=== PATIENT | male | born 1985 | race African-American/Black ===

== ENCOUNTER 2018-12-23 04:29 | Emergency (ER) | payer MEDICAID ==
[~2018-12-23] VITALS: Ht 180.3 cm; Wt 91.0 kg
[2018-12-23] MEDS ORDERED: IBUPROFEN 600MG TABLET PO ONE (09:00)
[2018-12-23 09:18] LABS: CLARITY URINE CLEAR (CLEAR); COLOR URINE YELLOW (YELLOW); KETONES URINE NEGATIVE (NEGATIVE); LEUKOCYTE ESTERASE URINE NEGATIVE (NEGATIVE); NITRITE URINE NEGATIVE (NEGATIVE); OCCULT BLOOD URINE NEGATIVE (NEGATIVE); PROTEIN URINE TRACE (NEGATIVE); UROBILINOGEN URINE 0.2 E.U./dL (0.2-1.0)
[2018-12-23 09:41] LABS: HEMATOCRIT. 44.6 % (42.0-52.0); HEMOGLOBIN. 15.1 g/dL (14.0-18.0); MEAN CORPUSCULAR HEMOGLOBIN 32.5 pg (28.0-32.0); MEAN CORPUSCULAR VOLUME 95.7 fL (80.0-94.0); MEAN PLATELET VOLUME 6.8 fl (7.4-10.4); PLATELET 369 x1000/uL (130-400); RED BLOOD CELL COUNT 4.66 mill/uL (4.7-6.1); RED CELL DISTRIBUTION WIDTH 14.3 % (11.6-14.6)
[2018-12-23 09:47] LABS: CHLORIDE 110 mEq/L (98-107)
[2018-12-23 09:51] LABS: ETHANOL BLOOD 165 mg/dL
[2018-12-23 10:13] LABS: *AMPHETAMINES SCREEN URINE NEGATIVE (NEGATIVE); *BENZODIAZEPINES SCREEN URINE NEGATIVE (NEGATIVE); *COCAINE SCREEN URINE PRESUMTIVE POSITIVE (NEGATIVE)
[2018-12-23 10:14] LABS: CANNABINOID URINE SCREEN NEGATIVE (NEGATIVE); METHADONE URINE SCREEN NEGATIVE (NEGATIVE); OPIATES URINE SCREEN NEGATIVE (NEGATIVE); PHENCYCLIDINE URINE SCREEN NEGATIVE (NEGATIVE)
[2018-12-23 10:15] LABS: *BARBITURATES SCREEN URINE NEGATIVE (NEGATIVE)
[2018-12-23 11:14] LABS: PLATELET ESTIMATE NORMAL
[2018-12-23] MEDS ORDERED: AMLODIPINE 5MG TABLET PO SCH (18:15)
[2018-12-23] MEDS ORDERED: IBUPROFEN 800MG TABLET PO ONE (20:45)
[2018-12-24] MEDS ORDERED: DIPHENHYDRAMINE 25MG CAPSULE PO ONE (02:30)
[2018-12-24] MEDS ORDERED: AMLODIPINE 5MG TABLET PO SCH (09:00)
[2018-12-24 12:46] VITALS: BP 154/88
== END 2018-12-24 14:23 | disposition home or self-care (01) ==
LOC: ER 04:29
DX: R45.851 Suicidal ideations (principal); F14.10 Cocaine abuse, uncomplicated; S62.307A Unspecified fracture of fifth metacarpal bone, left hand, initial encounter for closed fracture; X58.XXXA Exposure to other specified factors, initial encounter; Y93.89 Activity, other specified; Y92.9 Unspecified place or not applicable
CPT/HCPCS: 29125; 36415; 73130; 80053; 80305; 80307; 80320; 80329; 81003; 85025; 99284; Q0163; G0480

== ENCOUNTER 2019-01-14 10:23 | Emergency (ER) | payer OTHER, MEDICAID ==
[~2019-01-14] VITALS: Ht 175.3 cm; Wt 89.0 kg
[2019-01-14] MEDS ORDERED: KETOROLAC 15MG/ML VIAL IM ONE (12:15)
[2019-01-14 12:43] VITALS: BP 175/117
== END 2019-01-14 12:45 | disposition home or self-care (01) ==
LOC: ER 10:23
DX: M79.642 Pain in left hand (principal); Y35.893A Legal intervention involving other specified means, suspect injured, initial encounter
CPT/HCPCS: 73130; 96372; 99283; J1885

== ENCOUNTER 2020-05-29 21:19 | Inpatient (IN) | payer MEDICAID, OTHER ==
[~2020-05-29] VITALS: Ht 188 cm; Wt 115.7 kg
[2020-05-30 00:20] LABS: HEMATOCRIT. 39.5 % (42.0-52.0); HEMOGLOBIN. 13.9 g/dL (14.0-18.0); MEAN CORPUSCULAR HEMOGLOBIN 33.4 pg (28.0-32.0); PLATELET 258 x1000/uL (130-400); RED BLOOD CELL COUNT 4.16 mill/uL (4.7-6.1); RED CELL DISTRIBUTION WIDTH 14.1 % (11.6-14.6)
[2020-05-30 00:25] LABS: CHLORIDE 103 mEq/L (98-107)
[2020-05-30 01:07] LABS: PLATELET ESTIMATE NORMAL
[2020-05-30] MEDS ORDERED: ASPIRIN 325MG EC TABLET PO SCH (01:45)
[2020-05-30] MEDS ORDERED: ENOXAPARIN 100MG/ML SYR SUBCUT SCH (02:00)
[2020-05-30] MEDS ORDERED: LORAZEPAM 1MG TABLET PO ONE (02:30)
[2020-05-30 05:36] VITALS: BP 197/133
[2020-05-30] MEDS ORDERED: CLONIDINE 0.1MG TABLET PO PRN (05:45)
[2020-05-30 06:20] VITALS: BP 197/133
[2020-05-30 08:00] VITALS: BP 159/92
[2020-05-30] MEDS ORDERED: AZITHROMYCIN 500 MG in DEXT 5% WATER 250 ML IV SCH (08:00)
[2020-05-30] MEDS ORDERED: CEFTRIAXONE 1,000 MG in DEXTROSE 5% WATER 50 ML IV SCH (09:00)
[2020-05-30] MEDS ORDERED: AMLODIPINE 10MG TABLET PO SCH (09:00)
[2020-05-30] MEDS ORDERED: DEXAMETHASONE 2MG TABLET PO SCH (09:00)
[2020-05-30] MEDS ORDERED: POTASSIUM CHLORIDE 20MEQ TABLET SR PO SCH (10:00)
[2020-05-30 12:00] VITALS: BP 146/94
[2020-05-30] MEDS ORDERED: ENOXAPARIN 40MG/0.4ML SYR SUBCUT SCH (12:00)
[2020-05-30 12:19] LABS: EOSINOPHILS % 3.3 % (0.0-5.0); HEMATOCRIT. 42.5 % (42.0-52.0); HEMOGLOBIN. 14.6 g/dL (14.0-18.0); LYMPHOCYTES % 12.5 % (20.0-50.0); MEAN CORPUSCULAR HEMOGLOBIN 32.8 pg (28.0-32.0); MEAN CORPUSCULAR VOLUME 95.7 fL (80.0-94.0); MEAN PLATELET VOLUME 7.2 fl (7.4-10.4); MONOCYTES % 11.4 % (2.0-8.0); NEUTROPHILS % 71.8 % (40.0-76.0); PLATELET 283 x1000/uL (130-400); RED BLOOD CELL COUNT 4.45 mill/uL (4.7-6.1); RED CELL DISTRIBUTION WIDTH 13.9 % (11.6-14.6)
[2020-05-30] MEDS ORDERED: TRAMADOL 50MG TABLET PO PRN (12:45)
[2020-05-30 12:54] VITALS: BP 152/92
[2020-05-30 12:58] LABS: *COCAINE SCREEN URINE NEGATIVE (NEGATIVE); METHADONE URINE SCREEN NEGATIVE (NEGATIVE); OPIATES URINE SCREEN NEGATIVE (NEGATIVE)
[2020-05-30 12:59] LABS: CANNABINOID URINE SCREEN NEGATIVE (NEGATIVE); PHENCYCLIDINE URINE SCREEN NEGATIVE (NEGATIVE)
[2020-05-30 13:00] LABS: *BENZODIAZEPINES SCREEN URINE NEGATIVE (NEGATIVE)
[2020-05-30 13:02] LABS: *AMPHETAMINES SCREEN URINE PRESUMTIVE POSITIVE (NEGATIVE); *BARBITURATES SCREEN URINE NEGATIVE (NEGATIVE)
[2020-05-30 13:59] LABS: CHLORIDE 100 mEq/L (98-107)
[2020-05-30] MEDS ORDERED: HYDRALAZINE HCL 50MG TABLET PO SCH (14:00)
[2020-05-30] MEDS ORDERED: HYDR-4135 MT (15:05)
[2020-05-30] MEDS ORDERED: AMLO10TA80 MT (15:05)
== END 2020-05-30 16:00 | disposition left against medical advice (07) | DRG 197 ==
LOC: ER 21:19 → 8WST 05-30 02:33 → ENRESERV 05-30 03:18
PROVIDERS: ADMIT Internal Medicine; ATTEND Internal Medicine
DX: I73.9 Peripheral vascular disease, unspecified (principal); I16.0 Hypertensive urgency; E66.9 Obesity, unspecified; E87.1 Hypo-osmolality and hyponatremia; E87.6 Hypokalemia; F15.90 Other stimulant use, unspecified, uncomplicated; F17.210 Nicotine dependence, cigarettes, uncomplicated; R74.0 Nonspecific elevation of levels of transaminase and lactic acid dehydrogenase [LDH]; I10 Essential (primary) hypertension; Z91.14 Patient's other noncompliance with medication regimen; Z71.3 Dietary counseling and surveillance; Z71.6 Tobacco abuse counseling; Z68.32 Body mass index [BMI] 32.0-32.9, adult
CPT/HCPCS: 36415; 71045; 80048; 80053; 80061; 80305; 83880; 84443; 84484; 85025; 93005; 93306; 99291; J0456; J0696; J1650; J7060; J8540